=== PATIENT | male | born 1960 | race Caucasian/White ===

== ENCOUNTER 2016-12-27 18:48 | Emergency (ER) | payer OTHER ==
[2016-12-27 19:03] VITALS: BP 143/94; PULSE 85; RESP 16; TEMP 98.6; O2SAT 93
[2016-12-27] MEDS ORDERED: IBUPROFEN 600 MG TAB PO ONE (19:09)
--- NOTE | 2016-12-27 19:13 | EDPHY ---
H & P Time Seen by Provider: 12/27/16 18:59 HPI/ROS: CHIEF COMPLAINT: Left calf swelling HISTORY OF PRESENT ILLNESS: 56-year-old male states he was having a dream 2 nights ago that he was a goalie in a soccer game, reaching to stop a shot on cold. He reached to the left in his stream and fell out of his bed. When he landed on the floor his left right leg and foot struck his left calf. Patient reports ongoing and slightly worsening discomfort along the medial aspect of his left calf. He has not taking any medication. He has not ice the area. He was mowing the lawn today when he came in felt like the area was more swollen than he would expect. He is concerned regarding a potential blood clot. He has no history of clotting disorders, no family history of clotting disorders , no prolonged immobilization. No cancer diagnosis. He was otherwise well prior to these events. Denies chest pain or shortness of breath. Denies any pain behind his knee. Denies any numbness or tingling in his foot. No fever, chills, chest pain, shortness of breath, palpitations, vomiting, diarrhea, urinary complaints, headache, lightheadedness. REVIEW OF SYSTEMS: Aside from elements discussed in the HPI, a comprehensive 10-point review of systems was reviewed and is negative. PAST MEDICAL HISTORY: Patient denies. SOCIAL HISTORY: Here with his . VITAL SIGNS: see nurse's notes. GENERAL: Well-developed, well-nourished, in no acute distress. HEENT: Normal, benign exam. LUNGS: Clear to auscultation bilaterally, no wheezes, rhonchi or rales. CARDIAC: Regular rate and rhythm, no rubs, murmurs or gallops. ABDOMEN: Benign exam. EXTREMITIES: Left lower extremity: There is a 10 x 5 cm area of swelling, mild ecchymosis, and tenderness along the proximal medial left tib-fib area. Patient's calf compartment is soft. No fullness behind the knee. No coolness to the foot. Brisk capillary refill in the toes. Dorsalis pedis and posterior tibial pulses in the left foot are intact. No bony tenderness of the knee, tibia , or fibular head. NEURO: Alert and oriented, grossly nonfocal. SKIN: Warm and dry, no rash. Smoking Status: Never smoked Constitutional: Initial Vital Signs Temperature (C) 37 C 12/27/16 18:50 Heart Rate 85 12/27/16 18:50 Respiratory Rate 16 12/27/16 18:50 Blood Pressure 143/94 H 12/27/16 18:50 O2 Sat (%) 93 12/27/16 18:50 O2 Delivery Mode Room Air Allergies/Adverse Reactions: No Known Allergies Allergy (Verified 12/27/16 19:03) Home Medications: Medication Instructions Recorded NK [No Known Home Meds] 07/06/14 ED Images - Extremities Legs Front/Back: 1 - contusion, swelling, ecchymosis Medical Decision Making ED Course/Re-evaluation: 56-year-old male with a contusion along his left lower extremity. He is concerned regarding a blood clot. We discussed the pathophysiology of thromboembolic disease versus local contusion and intra muscular hematomas. We discussed compartment syndromes. We discussed rest, ice, compression, elevation. Patient feels comfortable being discharged with close follow-up. Differential Diagnosis: Differential diagnosis for the patient's injury was considered including but not limited to contusion, abrasion, hematoma, compartment syndrome, fracture, open fracture. - Data Points Medications Given: Discontinued Medications Ibuprofen (Motrin) 600 mg PO EDNOW ONE Stop: 12/27/16 19:10 Last Admin: 12/27/16 19:13 Dose: 600 mg Departure - Departure Disposition: Home, Routine, Self-Care Clinical Impression: Contusion of left calf Qualifiers: Encounter type: initial encounter Qualified Code(s): S80.12XA - Contusion of left lower leg, initial encounter Condition: Good Instructions: Contusion in Adults (ED), Hematoma (ED) Additional Instructions: Mainstay of therapy is rest, ice, immobilization, elevation, and nonsteroidal anti-inflammatories for pain and to decrease swelling. Apply ice for 20-30 minutes every 2-3 hours for the next 48 hours. I recommend Ibuprofen (Motrin, Advil) or Naproxen Sodium (Aleve) for pain and anti-inflammatory effects. You may take either one, but do not take both. Your dose is: Ibuprofen 600 mg every 6-8 hours with food. OR Naproxen Sodium (Aleve) 220 mg every 12 hours. Keep an Larry wrap gently wrapped on the area for compression. Try to keep the leg elevated as much as possible for the next 24-48 hours. Signs of compartment syndrome all include tingling in the foot, numbness, coolness of the foot, increased pain. If he develops significant swelling despite the above measures, or feel that the blood flow to the foot is being compromised by swelling, please return to the emergency department. Followup with your primary care physician as needed. Referrals: MIKE STAPLES [Primary Care Provider] - As per Instructions
== END 2016-12-27 19:28 | disposition home or self-care (01) ==
LOC: CED 18:48
DX: S80.12XA Contusion of left lower leg, initial encounter (principal); W06.XXXA Fall from bed, initial encounter; Y99.8 Other external cause status; Y93.84 Activity, sleeping